=== PATIENT | female | born 1985 | race Caucasian/White ===

== ENCOUNTER 2017-07-11 13:11 | Emergency (ER) | payer OTHER ==
[~2017-07-11] VITALS: Ht 147.3 cm; Wt 90.7 kg
[~2017-07-11 13:11] MED LIST: ACEBUTCAFT PO; ALBU90OI INH; CEPH250A PO; CLIN300 PO; CYCL10 PO; DICY20 PO; DOXY100 PO; FISH1000 PO; HYDACE5 PO; IBUP600 PO; IBUP800 PO; MULVITMINE PO; OXYACE5T PO; PRED20 PO; PROM25 PO; RXCEPH500 PO; RXHYDACE PO; RXPROM25 PO; SULTRIDS PO; Verotin-Gr Cap1 EACH PO
[2017-07-11] MEDS ORDERED: SERT25 (14:48)
== END 2017-07-11 15:50 | disposition home or self-care (01) ==
LOC: ER 13:11
DX: S01.81XA Laceration without foreign body of other part of head, initial encounter (principal); F17.200 Nicotine dependence, unspecified, uncomplicated; W17.89XA Other fall from one level to another, initial encounter; Z88.0 Allergy status to penicillin; Z88.1 Allergy status to other antibiotic agents; Z88.8 Allergy status to other drugs, medicaments and biological substances; Z79.899 Other long term (current) drug therapy
CPT/HCPCS: 12011; 70450; 73080; 90471; 90714; 99284

== ENCOUNTER 2017-07-14 08:42 | Emergency (ER) | payer OTHER ==
[~2017-07-14] VITALS: Ht 144.8 cm; Wt 103.4 kg
[~2017-07-14 08:42] MED LIST changes: +SERT25
[2017-07-14] MEDS ORDERED: ANXIETY MED (09:35)
== END 2017-07-14 10:52 | disposition home or self-care (01) ==
LOC: ER 08:42
DX: S01.81XD Laceration without foreign body of other part of head, subsequent encounter (principal); L02.01 Cutaneous abscess of face; Z88.0 Allergy status to penicillin; Z88.8 Allergy status to other drugs, medicaments and biological substances; Z79.899 Other long term (current) drug therapy; F17.200 Nicotine dependence, unspecified, uncomplicated; X58.XXXD Exposure to other specified factors, subsequent encounter
CPT/HCPCS: 99282

== ENCOUNTER 2018-12-07 10:56 | Emergency (ER) | payer OTHER ==
[~2018-12-07] VITALS: Ht 144.8 cm; Wt 90.7 kg
[~2018-12-07 10:56] MED LIST changes: +ANXIETY MED
[2018-12-07] MEDS ORDERED: [UNRECOGNIZED DRUG - REMARK] (11:07)
[2018-12-07] MEDS ORDERED: CEPH500 PO (12:00)
[2018-12-07] MEDS ORDERED: Bactrim Ds Tab1 EACH PO (12:00)
== END 2018-12-07 12:21 | disposition home or self-care (01) ==
LOC: ER 10:56
DX: T81.41XA Infection following a procedure, superficial incisional surgical site, initial encounter (principal); S81.011D Laceration without foreign body, right knee, subsequent encounter; Z88.0 Allergy status to penicillin; Z88.6 Allergy status to analgesic agent; Z88.8 Allergy status to other drugs, medicaments and biological substances; F17.210 Nicotine dependence, cigarettes, uncomplicated
CPT/HCPCS: 99282

== ENCOUNTER 2019-01-27 12:34 | Emergency (ER) | payer OTHER ==
[~2019-01-27] VITALS: Ht 144.8 cm; Wt 108.9 kg
[~2019-01-27 12:34] MED LIST changes: +Bactrim Ds Tab1 EACH PO; +CEPH500 PO; +[UNRECOGNIZED DRUG - REMARK]
[2019-01-27 13:43] LABS: BASOPHILS ABSOLUTE AUTO 0.04 K/mm3 (0.00-0.23); BASOPHILS PERCENT AUTO 1 % (0-2); EOSINOPHILS PERCENT AUTO 1 % (0-6); Hematocrit 35.1 % (33.0-51.0); Hemoglobin 11.1 g/dL (11.5-16.0); IMMATURE GRAN ABSOLUTE AUTO 0.03 K/mm3 (0.00-0.10); IMMATURE GRAN PERCENT AUTO 0 % (0-1); LYMPHOCYTES ABSOLUTE AUTO 1.98 K/mm3 (0.84-5.20); LYMPHOCYTES PERCENT AUTO 22 % (21-46); MONOCYTES ABSOLUTE AUTO 0.82 K/mm3 (0.16-1.47); MONOCYTES PERCENT AUTO 9 % (4-13); Mean Corpuscular HGB 30.1 pg (26.0-34.0); Mean Corpuscular HGB Conc 31.6 g/dL (31.5-36.5); Mean Corpuscular Volume 95 fL (80-100); Mean Platelet Volume 10.5 fL (9.1-12.4); NEUTROPHILS ABSOLUTE AUTO 5.86 K/mm3 (1.96-9.15); NEUTROPHILS PERCENT AUTO 66 % (41-73); Platelet Count 294 K/mm3 (150-400); RDW Coefficient Variation 15.1 % (11.7-14.2); RDW Standard Deviation 52.8 fL (35.1-46.3); Red Blood Cell Count 3.69 M/mm3 (3.80-5.20); White Blood Cell Count 8.83 K/mm3 (4.00-11.30)
[2019-01-27 13:55] LABS: Alanine Aminotransfer (ALT/SGP 23 U/L (12-78); Albumin, Blood 3.2 g/dL (3.4-5.0); Albumin/Globulin Ratio 0.8 (0.8-1.8); Alk Phos 117 U/L (50-136); Anion Gap 8 mmol/L (6-16); Aspartate Aminotrans (AST/SGOT 22 U/L (12-37); Bilirubin, Total 0.3 mg/dL (0.1-1.0); Blood Urea Nitrogen 7 mg/dL (8-24); Bun/Creatinine Ratio 10.8 (12.0-20.0); CO2, Blood 24 mmol/L (21-32); Calcium, Blood 8.7 mg/dL (8.5-10.1); Chloride, Blood 110 mmol/L (98-108); Creatinine, Blood 0.65 mg/dL (0.40-1.00); Glomerular Filtration Rate >60 (60-); Glucose, Blood 113 mg/dL (70-99); Potassium, Blood 3.8 mmol/L (3.5-5.5); Sodium, Blood 142 mmol/L (136-145); Total Protein, Blood 7.2 g/dL (6.4-8.2)
[2019-01-27] MEDS ORDERED: Budeprion Xl300 MG PO (14:09)
[2019-01-27] MEDS ORDERED: DIVA500ER PO (14:09)
[2019-01-27] MEDS ORDERED: HYDPAM50 PO (14:10)
[2019-01-27] MEDS ORDERED: CLON.1 PO (14:10)
[2019-01-27] MEDS ORDERED: SERT100 PO (14:10)
[2019-01-27] MEDS ORDERED: PRAZ1 PO (14:12)
[2019-01-27] MEDS ORDERED: OLAN5 PO (14:12)
[2019-01-27] MEDS ORDERED: IBUP800 PO (15:01)
[2019-01-27] MEDS ORDERED: Norco 5-325 Ta1 EACH PO (15:01)
[2019-01-27] MEDS ORDERED: Colace250 MG PO (15:01)
== END 2019-01-27 15:05 | disposition home or self-care (01) ==
LOC: ER 12:34
PROVIDERS: Physician Assistant
DX: S32.2XXA Fracture of coccyx, initial encounter for closed fracture (principal); F31.9 Bipolar disorder, unspecified; F17.200 Nicotine dependence, unspecified, uncomplicated; Z88.0 Allergy status to penicillin; Z88.1 Allergy status to other antibiotic agents; Z79.899 Other long term (current) drug therapy; W17.89XA Other fall from one level to another, initial encounter
CPT/HCPCS: 36415; 73630; 74177; 80053; 84703; 85025; 96374-59; 99284-25; J1885; Q9967

== ENCOUNTER 2019-07-09 11:21 | Emergency (ER) | payer OTHER ==
[~2019-07-09] VITALS: Ht 144.8 cm; Wt 104.3 kg
[~2019-07-09 11:21] MED LIST changes: +Budeprion Xl300 MG PO; +CLON.1 PO; +Colace250 MG PO; +DIVA500ER PO; +HYDPAM50 PO; +Norco 5-325 Ta1 EACH PO; +OLAN5 PO; +PRAZ1 PO; +SERT100 PO
[2019-07-09] MEDS ORDERED: TRAM50 PO (11:57)
[2019-07-09] MEDS ORDERED: Cleocin HCl300 MG PO (11:57)
== END 2019-07-09 12:08 | disposition home or self-care (01) ==
LOC: ER 11:21
DX: K02.9 Dental caries, unspecified (principal); Z88.0 Allergy status to penicillin; Z88.6 Allergy status to analgesic agent; Z88.8 Allergy status to other drugs, medicaments and biological substances; Z79.899 Other long term (current) drug therapy; F31.9 Bipolar disorder, unspecified; F17.210 Nicotine dependence, cigarettes, uncomplicated
CPT/HCPCS: 99282

== ENCOUNTER 2024-01-09 17:36 | Emergency (ER) | payer OTHER ==
[~2024-01-09] VITALS: Ht 144.8 cm; Wt 104.3 kg
[~2024-01-09 17:36] MED LIST changes: +Cleocin HCl300 MG PO; +TRAM50 PO
[2024-01-09 18:13] VITALS: BP 147/91
[2024-01-09] MEDS ORDERED: Diphth,Pertuss(Acell),Tet Vac 0.5 ML VIAL IM ONE ×2 (18:15→21:15)
== END 2024-01-09 21:43 | disposition home or self-care (01) ==
LOC: ER 17:36
DX: S51.012A Laceration without foreign body of left elbow, initial encounter (principal); V86.95XA Unspecified occupant of 3- or 4- wheeled all-terrain vehicle (ATV) injured in nontraffic accident, initial encounter; Z88.0 Allergy status to penicillin; Z88.8 Allergy status to other drugs, medicaments and biological substances; Z88.6 Allergy status to analgesic agent; Z79.899 Other long term (current) drug therapy; F17.210 Nicotine dependence, cigarettes, uncomplicated
CPT/HCPCS: 90715